=== PATIENT | male | born 1995 | race Caucasian/White ===

== ENCOUNTER 2017-03-22 10:28 | Emergency (ER) | payer SELFPAY ==
[2017-03-22 10:34] VITALS: BP 108/76
--- NOTE | 2017-03-22 11:30 | EDM.PDOC ---
ED HPI GENERAL MEDICAL PROBLEM - General Chief Complaint: Genitourinary Problem Stated Complaint: urinary pain/discharge Time Seen by Provider: 03/22/17 10:40 Source of Information: Reports: Patient History Limitations: Reports: No Limitations - History of Present Illness INITIAL COMMENTS - FREE TEXT/NARRATIVE: Patient is a 22-year-old who came into the ER with chief complaint of dysuria with discharge patient has been in a steady relationship for about 3 months and recently got out patient's dates that his previous sexual partner possibly had another partner on history taking patient is here for checkup and treatment Onset: Gradual Onset Date: 03/19/17 Duration: Getting Worse Location: Reports: Other (Genitourinary) Quality: Reports: Burning, Pressure Severity: Moderate Improves with: Reports: None, Medication ([id number] Azol) Worsens with: Reports: Other (Alcohol) Context: Reports: Sick Contact Associated Symptoms: Reports: No Other Symptoms Treatments [employer]: Reports: Home Treatments, Other Medication(s) (Azo) Penis Pain Score (Numeric/FACES): 8 - Related Data Allergies Allergy/AdvReac Type Severity Reaction Status Date / Time amoxicillin Allergy Swelling Verified 03/22/17 10:30 Penicillins Allergy Swelling Verified 03/22/17 10:30 Home Meds: Home Meds Sulfamethoxazole/Trimethoprim [Septra DS] 1 tab PO BID #20 tablet 03/22/17 [Rx] Past Medical History HEENT History: Reports: Allergic Rhinitis, Impaired Vision Gastrointestinal History: Reports: GERD Musculoskeletal History: Reports: Other (See Below) Other Musculoskeletal History: Left clavicle fx Neurological History: Reports: Migraines Psychiatric History: Reports: Addiction, Anxiety, Depression Social & Family History - Tobacco Use Years of Tobacco use: 1 Packs/Tins Daily: 1 - Caffeine Use Caffeine Use: Reports: Coffee, Soda, Tea - Alcohol Use Days Per Week of Alcohol Use: 2 Number of Drinks Per Day: 12 Total Drinks Per Week: 24 - Recreational Drug Use Recreational Drug Use: Yes Drug Use in Last 12 Months: Yes Recreational Drug Type: Reports: Amphetamines (Speed), Heroin, Oxycodone Recreational Drug Use Frequency: Monthly ED ROS GENERAL - Review of Systems Review Of Systems: See Below Constitutional: Reports: No Symptoms HEENT: Reports: No Symptoms Respiratory: Reports: No Symptoms Cardiovascular: Reports: No Symptoms Endocrine: Reports: No Symptoms GI/Abdominal: Reports: No Symptoms : Reports: Discharge, Dysuria, Urgency Musculoskeletal: Reports: No Symptoms Skin: Reports: No Symptoms Neurological: Reports: No Symptoms Psychiatric: Reports: No Symptoms Hematologic/Lymphatic: Reports: No Symptoms Immunologic: Reports: No Symptoms ED EXAM, GENERAL - Physical Exam Exam: See Below Exam Limited By: No Limitations General Appearance: Alert, WD/WN, No Apparent Distress Ears: Normal External Exam, Normal Canal, Hearing Grossly Normal, Normal TMs Ear Exam: Bilateral Ear: Auricle Normal, Canal Normal, TM normal Nose: Normal Inspection, Normal Mucosa, No Blood Throat/Mouth: Normal Inspection, Normal Lips, Normal Teeth, Normal Gums, Normal Oropharynx, Normal Voice, No Airway Compromise Head: Atraumatic, Normocephalic Neck: Normal Inspection, Supple, Non-Tender, Full Range of Motion Respiratory/Chest: No Respiratory Distress, Lungs Clear, Normal Breath Sounds, No Accessory Muscle Use, Chest Non-Tender Cardiovascular: Normal Peripheral Pulses, Regular Rate, Rhythm, No Edema, No Gallop, No JVD, No Murmur, No Rub GI/Abdominal: Normal Bowel Sounds, Soft, Non-Tender, No Organomegaly, No Distention, No Abnormal Bruit, No Mass (Male) Exam: Circumcised, Urethral Discharge (Yellowish in color) Rectal (Males) Exam: Deferred Back Exam: Normal Inspection, Full Range of Motion, NT Extremities: Normal Inspection, Normal Range of Motion, Non-Tender, Normal Capillary Refill, No Pedal Edema Neurological: Alert, Oriented, CN II-XII Intact, Normal Cognition, Normal Gait, Normal Reflexes, No Motor/Sensory Deficits Psychiatric: Normal Affect, Normal Mood Course - Vital Signs Last Recorded V/S: Last Vital Signs Temp 98.5 F 03/22/17 10:33 Pulse 102 H 03/22/17 10:33 Resp 20 03/22/17 10:33 BP 108/76 03/22/17 10:33 Pulse Ox 100 03/22/17 10:33 - Orders/Labs/Meds Orders: Active Orders 24 hr Category Date Time Status CHLAMYDIA/GC NUCLEIC ACID AMP [MREF] Stat Lab 03/22/17 11:25 Received HIV 1,2 AB/AG COMBO SCREEN [REF] Stat Lab 03/22/17 11:10 Received RPR [REF] Stat Lab 03/22/17 11:10 Received Labs: Laboratory Tests 03/22/17 03/22/17 Range/Units 10:44 10:48 WBC 7.5 (4.0-10.2) K/uL RBC 4.48 (4.33-5.41) M/uL Hgb 13.7 (13.1-16.8) g/dL Hct 40.3 (39.0-49.0) % MCV 90.0 (84.0-98.0) fL MCH 30.6 (28.2-33.3) pg MCHC 34.0 (31.7-36.0) g/dL RDW 13.1 (11.2-14.1) % Plt Count 281 (150-350) K/uL Neut % (Auto) 71.9 (45.0-80.0) % Lymph % (Auto) 21.1 (10.0-50.0) % Crisp % (Auto) 6.5 (2.0-14.0) % Eos % (Auto) 0.1 (0.0-5.0) % Baso % (Auto) 0.4 (0.0-2.0) % Neut # (Auto) 5.38 (1.40-7.00) K/uL Lymph # (Auto) 1.58 (0.50-3.50) K/uL Crisp # (Auto) 0.49 (0.00-1.00) K/uL Eos # (Auto) 0.01 (0.00-0.50) K/uL Baso # (Auto) 0.03 (0.00-0.20) K/uL Specimen Type Urincc Urine Color Dark yellow Urine Appearance Clear Urine pH 6.0 (5.0-9.0) Ur Specific [place] <= 1.005 (1.005-1.030) Urine Protein Negative (NEGATIVE) mg/dL Urine Glucose (UA) 100 H (NEGATIVE) mg/dL Urine Ketones Negative (NEGATIVE) mg/dL Urine Occult Blood Trace-intact H (NEGATIVE) Urine Nitrite Positive H (NEGATIVE) Urine Bilirubin Negative (NEGATIVE) Urine Urobilinogen 0.2 (0.2-1.0) E.U./dL Ur Leukocyte Esterase Small H (NEGATIVE) Urine RBC 0-5 /HPF Urine WBC 30-40 H /HPF Ur Epithelial Cells Rare /LPF Urine Bacteria Few (NONE TO FEW) /HPF Meds: Medications Discontinued Medications Generic Name Dose Route Start Last Admin Trade Name Madhuri PRN Reason Stop Dose Admin Azithromycin 1,000 mg 03/22/17 11:50 03/22/17 12:04 Zithromax PO 03/22/17 11:51 1,000 mg ONETIME ONE Administration Ceftriaxone Sodium 250 mg 03/22/17 12:02 Rocephin IM 03/22/17 12:03 ONETIME ONE Lidocaine HCl Confirm 03/22/17 12:07 Xylocaine-Mpf 1% Administered 03/22/17 12:08 Dose 5 ml .ROUTE .STK-MED ONE Metronidazole 2,000 mg 03/22/17 11:52 03/22/17 12:04 Flagyl PO 03/22/17 11:53 2,000 mg ONETIME ONE Administration Departure - Departure Time of Disposition: 12:15 Disposition: Home, Self-Care 01 Clinical Impression: UTI, Urinary tract infectious disease, STD (male) - Discharge Information Prescriptions: Sulfamethoxazole/Trimethoprim [Septra DS] 1 tab PO BID #20 tablet Referrals: PCP,None [Primary Care Provider] - Forms: ED Department Discharge Care Plan Goals: Patient was treated for STDs Will treat for UTI as an outpatient with Septra DS 1 tablet twice a day for 10 days Patient needs to be followed as an outpatient in clinic of preference patient is to make an appointment with primary care of preference - Problem List & Annotations (1) STD (male) SNOMED Code(s): 6452158 Code(s): A64 - UNSPECIFIED SEXUALLY TRANSMITTED DISEASE Status: Acute Priority: High Onset Date: 03/18/17 Annotation/Comment:: Patient will be treated for global STD which excludes Rocephin 250 mg IM Zithromax 1 g by mouth and metronidazole 2 g by mouth all single doses - My Orders Last 24 Hours: My Active Orders 03/22/17 11:10 HIV 1,2 AB/AG COMBO SCREEN [REF] Stat RPR [REF] Stat 03/22/17 11:25 CHLAMYDIA/GC NUCLEIC ACID AMP [MREF] Stat - Assessment/Plan Last 24 Hours: My Active Orders 03/22/17 11:10 HIV 1,2 AB/AG COMBO SCREEN [REF] Stat RPR [REF] Stat 03/22/17 11:25 CHLAMYDIA/GC NUCLEIC ACID AMP [MREF] Stat Assessment:: std Plan: Patient will be treated for global STD which excludes Rocephin 250 mg IM Zithromax 1 g by mouth and metronidazole 2 g by mouth all single doses
[2017-03-22] MEDS ORDERED: Azithromycin 250 MG Tab PO ONE (11:50)
[2017-03-22] MEDS ORDERED: metroNIDAZOLE 500 MG Tab PO ONE (11:52)
[2017-03-22] MEDS ORDERED: CEFTRIAXONE IV SCH (12:00)
[2017-03-22] MEDS ORDERED: SODIUM CHLORIDE 0.9% IV SCH (12:00)
[2017-03-22] MEDS ORDERED: cefTRIAXone 250 MG Vial IM ONE (12:02)
== END 2017-03-22 12:45 | disposition home or self-care (01) ==
LOC: LL.ED 10:28
DX: N39.0 Urinary tract infection, site not specified (principal); K21.9 Gastro-esophageal reflux disease without esophagitis; Z88.1 Allergy status to other antibiotic agents; Z88.0 Allergy status to penicillin
CPT/HCPCS: 36415; 81001; 85025; 86592; 87389; 96372; 99283; A9270; J0696; 86703; 87491; 87591